=== PATIENT | male | born 1970 | race Caucasian/White ===

== ENCOUNTER 2019-08-22 10:17 | Emergency (ER) | payer OTHER ==
[~2019-08-22] VITALS: Ht 188 cm; Wt 109.1 kg
[2019-08-22] MEDS ORDERED: CYCLOBENZAPRINE10 M1 PO (11:31)
[2019-08-22 11:38] VITALS: BP 134/76
== END 2019-08-22 11:40 | disposition home or self-care (01) ==
LOC: ED 10:17
DX: S39.012A Strain of muscle, fascia and tendon of lower back, initial encounter (principal); X50.1XXA Overexertion from prolonged static or awkward postures, initial encounter; Y92.89 Other specified places as the place of occurrence of the external cause; Y99.0 Civilian activity done for income or pay
CPT/HCPCS: J1885; J2360